=== PATIENT | female | born 1945 | race Caucasian/White ===

== ENCOUNTER 2019-10-03 15:43 | Inpatient (IN) | payer MEDICARE, OTHER ==
[~2019-10-03] VITALS: Ht 165.1 cm; Wt 67.6 kg
[2019-10-03] MEDS ORDERED: TRAZ-257 PO (16:18)
[2019-10-03] MEDS ORDERED: TRIA15CR2 TP (16:18)
[2019-10-03] MEDS ORDERED: PROP10TA10 PO (16:18)
[2019-10-03] MEDS ORDERED: CLON1TAB12 PO (16:18)
[2019-10-03] MEDS ORDERED: LEVO88TA5 PO (16:18)
[2019-10-03] MEDS ORDERED: ESCI20TA PO (16:18)
[2019-10-03 16:24] LABS: BASOPHILS # (AUTO) 0.1 K/uL (0.0-8.0); BASOPHILS % (AUTO) 1.2 % (0.0-2.0); EOSINOPHILS # (AUTO) 0.2 K/uL (0.0-0.7); EOSINOPHILS % (AUTO) 3.4 % (0.0-7.0); HEMOGLOBIN 11.5 g/dL (10.9-14.3); LYMPHOCYTES # (AUTO) 1.8 K/uL (20.0-40.0); LYMPHOCYTES % (AUTO) 29.8 % (20.5-51.5); MEAN CORPUSCULAR HEMOGLOBIN 34.6 uug (24.7-32.8); MEAN CORPUSCULAR HGB CONC 34 g/dL (32.3-35.6); MEAN CORPUSCULAR VOLUME 102.7 fL (75.5-95.3); MONOCYTES # (AUTO) 0.6 K/uL (2.0-10.0); NEUTROPHILS # (AUTO) 3.3 K/uL (1.8-8.9); NEUTROPHILS % (AUTO) 55.6 % (38.5-71.5); PLATELET COUNT (AUTO) 273 K/uL (179-408); RED BLOOD CELL COUNT(AUTO) 3.31 MIL/uL (3.63-4.92); WHITE BLOOD COUNT (AUTO) 5.9 K/uL (3.8-11.8)
[2019-10-03 16:30] LABS: CARBON DIOXIDE 28 mmol/L (21-32); CHLORIDE 102 mmol/L (98-107); CREATININE 0.7 mg/dL (0.6-1.3); GLUCOSE 72 mg/dL (74-106); POTASSIUM 3.8 mmol/L (3.5-5.1); UREA NITROGEN, BLOOD 9 mg/dL (7-18)
[2019-10-03 16:35] LABS: ALANINE AMINOTRANSFERASE 22 U/L (14-59); ALKALINE PHOSPHATASE 96 U/L (50-136); ASPARTATE AMINOTRANSFERASE 27 U/L (15-37); BILIRUBIN,DIRECT 0.2 mg/dL (0.0-0.2); BILIRUBIN,TOTAL 0.7 mg/dL (0.2-1.0); TOTAL PROTEIN, SERUM 6.8 g/dL (6.4-8.2)
[2019-10-03 16:36] LABS: ACETAMINOPHEN < 2.0 ug/mL (10-30)
[2019-10-03 16:48] LABS: ETHANOL < 3 MG/DL (0-0)
[2019-10-03] MEDS ORDERED: LORAZEPAM 0.5 MG TABLET PO PRN (17:30)
[2019-10-03] MEDS ORDERED: MAGNESIUM HYDROXIDE 30 ML LIQUID UDC PO PRN (17:30)
[2019-10-03] MEDS ORDERED: MAG HYDROX/AL HYDROX/SIMETH 30 ML LIQUID UDC PO PRN (17:30)
[2019-10-03] MEDS ORDERED: ZOLPIDEM 5 MG TABLET PO PRN (17:30)
--- NOTE | 2019-10-03 17:30 | NUR ---
GPS : ADMISSION NOTES admitting this 74y/o Female, coming in from on [address] Addendum: 10/03/19 at 1837 by KERRIE MCMAHON RN patient arrive on [facility], assessed Head to toe patient denies pain, denies SI and HI at this time, patient seems to be guarded and anxious, patient cooperative with the admission process, oriented with the unit and her room, patient then went to the dining room to eat and watch TV, called and spoke with Dr. Lebron and , orders made and carried out, patient kept comfortable and safe, will continue monitor
[2019-10-03 17:31] VITALS: BP 148/76
[2019-10-03 20:00] VITALS: BP 144/55
--- NOTE | 2019-10-04 03:42 | NUR ---
GPS: PT NEW ADMIT FROM ENDORSEMENT, A/OX3, PT ABLE TO COMMUNICATE NEEDS CLEARLY. DENIED SI OR INTENT OT HARM SELF. PT NOTED PACING WITHIN UNIT BUT CALMED. PT ALSO NOTED TO LAUGH INAPPROPRIATELY. BY 2100 PT REQUESTED FOR SLEEPING AID AND PRN AMBIEN GIVEN ORDER. PT AT THIS TIME ASLEEP NOTED EFFECT OF MEDICATION. ENCOURAGE PT TO VERBALIZED NEEDS KEPT COMFORTABLE. WILL CONTINUE MONITOR WITH Q 15 MINS HEAD COUNT ONGOING.
--- NOTE | 2019-10-04 05:23 | NUR ---
PT DAUGHTER WANTED TO BE ADDED ON PT CONTACT LIST TO BE NOTIFIED, BUT HER NAME WAS NOT FOUND IN F/C. WILL INFORMED PT WHEN AWAKE IF CONSENTED TO ADDING DAUGHTER NAME. PH # [phone] JOSE DANIEL MRAQUES
[2019-10-04 06:53] LABS: BASOPHILS # (AUTO) 0.1 K/uL (0.0-8.0); BASOPHILS % (AUTO) 1.1 % (0.0-2.0); EOSINOPHILS # (AUTO) 0.3 K/uL (0.0-0.7); HEMATOCRIT 38.4 % (31.2-41.9); HEMOGLOBIN 12.8 g/dL (10.9-14.3); LYMPHOCYTES # (AUTO) 2.3 K/uL (20.0-40.0); LYMPHOCYTES % (AUTO) 36.3 % (20.5-51.5); MEAN CORPUSCULAR HEMOGLOBIN 34.7 uug (24.7-32.8); MEAN CORPUSCULAR HGB CONC 33 g/dL (32.3-35.6); MONOCYTES # (AUTO) 0.8 K/uL (2.0-10.0); MONOCYTES % (AUTO) 11.9 % (0.0-11.0); NEUTROPHILS # (AUTO) 2.9 K/uL (1.8-8.9); NEUTROPHILS % (AUTO) 45.7 % (38.5-71.5); PLATELET COUNT (AUTO) 316 K/uL (179-408); WHITE BLOOD COUNT (AUTO) 6.4 K/uL (3.8-11.8)
--- NOTE | 2019-10-04 06:59 | NUR ---
Pt was informed of daughter request. Pt said she will call her instead.
--- NOTE | 2019-10-04 07:00 | NUR ---
Found a bruise on pt right thigh and upper buttock, see documentation per pt she fall last week, she had x-ray done with no abnormal.
[2019-10-04 07:08] LABS: BILIRUBIN,TOTAL 0.8 mg/dL (0.2-1.0); CREATININE 0.9 mg/dL (0.6-1.3); POTASSIUM 3.6 mmol/L (3.5-5.1); TOTAL PROTEIN, SERUM 7.4 g/dL (6.4-8.2)
[2019-10-04 07:28] LABS: THYROID STIMULATING HORMONE 10.249 mIU/mL (0.358-3.740)
[2019-10-04 07:30] VITALS: BP 138/72
[2019-10-04] MEDS ORDERED: LEVOTHYROXINE SODIUM 88 MCG TABLET PO SCH (07:30)
[2019-10-04 07:40] LABS: PHOSPHOROUS 3.6 mg/dL (2.5-4.9)
[2019-10-04] MEDS: MULTIVITAMINS,THERAPEUTIC TABLET PO SCH (08:51)
[2019-10-04] MEDS: FOLIC ACID 1 MG TABLET PO SCH (08:52)
[2019-10-04] MEDS: THIAMINE HCL 100 MG TABLET PO SCH (08:52)
[2019-10-04] MEDS: ESCITALOPRAM OXALATE 10 MG TABLET PO SCH (09:45)
[2019-10-04] MEDS ORDERED: LORAZEPAM 1 MG TABLET PO PRN (09:45)
[2019-10-04] MEDS: ACETAMINOPHEN 325 MG TABLET PO PRN (13:12)
--- NOTE | 2019-10-04 14:25 | NUR ---
Substance Abuse Intervention: SW conducted a substance abuse intervention with the pt due to her alcohol abuse.
--- NOTE | 2019-10-04 15:05 | NUR ---
Family Contact: SW called the pts daughter, Margaret ([phone]), and informed her that the pt is in the hospital and discussed the pts treatment and discharge plan. SW spoke to the daughter about the pts current behaviors and she stated that the pt was serious about ending her life and was not specific about her alcohol abuse. She stated that she abuses alcohol when she is upset.
--- NOTE | 2019-10-04 15:32 | NUR ---
Initial Discharge Plan: Pt currently resides in her home alone located at [address] [place] [address] Rd, [address], [place] [address]; ([phone]). Per pt, she would like to return to her home. PELON will work with the pt and the MD regarding appropriate discharge planning. SW will form a safe and proper discharge.
[2019-10-04 16:00] VITALS: BP 148/66
--- NOTE | 2019-10-04 20:00 | NUR ---
RECEIVED PATIENT IN HER ROOM SITTING IN HER BED. SHE IS NOTED AWAKE A/O X 3. ABLE TO AMBULATE WITH STEADY GAIT. SHE IS HYPERVERBAL AND ABLE TO VERBALIZED FEELINGS. MOOD IS LABILE, AFFECT IS BRIGHT. PATIENT MINIMIZED THE REASON FOR HER ADMISSION TO [facility]. SHE DENIED SI/HI/VH/AH. SHE IS ABLE TO CFS. PATIENT IS REASSURED FOR HIS SAFETY, SAFETY AND FALL PRECAUTION IN PLACE. WILL CONTINUE TO MONITOR.
[2019-10-04 20:06] VITALS: BP 159/73
[2019-10-04] MEDS ORDERED: TRAZODONE 100 MG TABLET PO SCH (21:00)
[2019-10-04] MEDS ORDERED: ATORVASTATIN 10 MG TABLET PO SCH (21:00)
[2019-10-05] MEDS ORDERED: LEVOTHYROXINE SODIUM 100 MCG TABLET PO SCH (07:00)
[2019-10-05 07:30] VITALS: BP 133/48
[2019-10-05] MEDS: THIAMINE HCL 100 MG TABLET PO SCH (08:32)
[2019-10-05] MEDS: MULTIVITAMINS,THERAPEUTIC TABLET PO SCH (08:32)
[2019-10-05] MEDS: FOLIC ACID 1 MG TABLET PO SCH (08:32)
[2019-10-05] MEDS: ESCITALOPRAM OXALATE 10 MG TABLET PO SCH (08:32)
[2019-10-05] MEDS: ACETAMINOPHEN 325 MG TABLET PO PRN (09:59)
--- NOTE | 2019-10-05 15:14 | NUR ---
Discharge Note: Patient left hospital AMA via Uber. VS were stable. Discharge referrals were given to patient for Outpatient substance abuse, [facility] [place], and Encouraged to follow up with her primary Doctor. All belongings sent with patient. Patient denied SI and HI. Patient verbalized understand of coming to nearest ER or to call 911 with feelings of wanting to hurt self.
--- NOTE | 2019-10-05 15:17 | NUR ---
Family Contact: SW called the pts daughter, Margaret ([phone]), and informed her that the pt was discharged against medical advice. SW went over the lack of criteria to put the pt on a 14 day hold and explained how the pt did not want to stay voluntarily.
[2019-10-05 15:28] VITALS: BP 149/73
--- NOTE | 2019-10-05 15:42 | NUR ---
Discharge Note: Pt was discharged back to her home against medical advice located at [address], [address], [place] [address]; ([phone]). Pt was transported via Uber around 1600. Upon discharge, pt appeared to be in a euthymic mood and presented with a calm affect. Pt denied both suicidal and homicidal ideation as well as auditory and visual hallucinations. Pt appeared to be alert and oriented x4 (time, place, self and situation). Pt appears to be ambulatory with a steady gait. Pt was given substance abuse referrals at the time of discharge and was referred for follow up. Pt will be under the care of [facility] located at [address] [place] [address]; ; fax: for psychiatric services. 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 Linda Chun, [facility] located at [address] [place] [address]; . Addendum: 10/05/19 at 1614 by AUSTEN BIRD [facility] [address], [place] [address] Recovery [facility]: Outpatient Rehab [address], [place] [id number]
--- NOTE | 2019-10-10 10:33 | NUR ---
Social Work Firearms Report ([employer]): [employer] completed and submitted a [employer] firearms report for 5150 [address] certification. A copy of report has been placed in patient chart.
== END 2019-10-05 15:45 | disposition left against medical advice (07) | DRG 880 ==
LOC: ER 15:47 → GPS 17:05
PROVIDERS: ADMIT Psychiatry & Neurology Psychiatry; ATTEND Internal Medicine
DX: F41.1 Generalized anxiety disorder (principal); Y90.0 Blood alcohol level of less than 20 mg/100 ml; F10.129 Alcohol abuse with intoxication, unspecified; E03.9 Hypothyroidism, unspecified; Z79.899 Other long term (current) drug therapy; D75.89 Other specified diseases of blood and blood-forming organs; E78.5 Hyperlipidemia, unspecified; Z85.828 Personal history of other malignant neoplasm of skin; L40.9 Psoriasis, unspecified
CPT/HCPCS: 36415; 80329; 82652; 83735; 84100; 84443; 85025; 93005; A4663; G0480; G0480-TC